=== PATIENT | female | born 1980 | race Caucasian/White ===

== ENCOUNTER 2020-05-16 15:59 | Emergency (ER) | payer BC, OTHER ==
[~2020-05-16] VITALS: Ht 162.5 cm; Wt 68.5 kg
[~2020-05-16 15:59] MED LIST: DULO30CA3 PO; GABA800T10 PO; LEVO75TA6 PO; NORT25CA PO; SUCR1ORA5 PO; TIZA4TAB4 PO
--- NOTE | 2020-05-16 16:38 | ED Headache ---
General Chief Complaint: Head/Cervical Problems Stated Complaint: TROUBLE STANDING UP,HEADACHE Source: patient History of Present Illness Date Seen by Provider: May 16, 2020 Time Seen by Provider: 16:30 Initial Comments Patient presents with headache and neck pain onset this morning. Yesterday she had a myelogram for her chronic back pain, done in [place] and [facility] [place]. Some photosensitivity. No change of her back pain and no neurologic deficit. Allergies and Home Medications Allergies Coded Allergies: latex (Unverified Allergy, Intermediate, HIVES, 06/21/14) Home Medications Duloxetine HCl 30 Mg Capsule.dr, 30 MG PO BID, (Reported) Gabapentin 800 Mg Tablet, 800 MG PO TID, (Reported) Levothyroxine Sodium 75 Mcg Tablet, 75 MCG PO DAILY, (Reported) Nortriptyline HCl 25 Mg Capsule, 25 MG PO HS, (Reported) Sucralfate 1 Gm/10 Ml Oral.susp, 1 GM PO QID, (Reported) Tizanidine HCl 4 Mg Tablet, 4 MG PO HS, (Reported) Patient Home Medication List Home Medication List Reviewed: Yes Review of Systems Review of Systems Constitutional: no symptoms reported Gastrointestinal: No abdominal pain, No nausea, No vomiting Musculoskeletal: No back pain; neck pain Psychiatric/Neurological: See HPI, Headache; Denies Numbness, Denies Paresthesia, Denies Seizure, Denies Tingling, Denies Tremors, Denies Weakness Past Mzipxhd-Jrajpx-Kbpnfw Hx Past Med/Social Hx: Reviewed Nursing Past Med/Soc Hx Patient Social History Type Used: Cigarettes Former Smoker, Quit: Jul 01, 1996 Recent Foreign Travel: No Contact w/Someone Who Travel: No Past Medical History Reproductive Disorders: No Female Reproductive Disorders: Denies Sexually Transmitted Disease: No HIV/AIDS: No UTI-Chronic Gastroesophageal Reflux, Hiatal Hernia Degenerate Disk Disease, Arthritis, Back Injury, Chronic Back Pain Loss of Vision: Denies Hearing Impairment: Denies Adverse Reaction/Blood Tranf: No (N/A) Physical Exam Vital Signs Vital Signs - First Documented 05/16/20 16:13 Temp 35.7 Pulse 77 Resp 20 B/P (MAP) 113/77 (89) Pulse Ox 97 O2 Delivery Room Air Capillary Refill : Height, Weight, BMI Height: 5'4.00" Weight: 226lbs. 1.0oz. 102.226662mm; 38.8 BMI Method: General Appearance: WD/WN, no apparent distress HEENT: PERRL/EOMI, normal ENT inspection Neck: full range of motion, supple, tender lateral, tender midline Crainal Nerves: normal hearing, normal speech, PERRL Comments neck pain with full flexion. Progress/Results/Core Measures Results/Orders Vital Signs/I&O 05/16/20 05/16/20 16:13 17:25 Temp 35.7 35.7 Pulse 77 75 Resp 20 20 B/P (MAP) 113/77 (89) 107/73 (84) Pulse Ox 97 97 O2 Delivery Room Air Progress Progress Note : Progress Note Discussed pt Presentation, clinical findings of "spinal RAIN", HPI and PMHX with Dr Hector Barkley (ER @ [place]) Pt offered tx for her RAIN in this ER, but she declined as she wants to see Anesthesia (for a blood patch), very adamant that she wants tx today so she can get back to work tomorrow. Pt's daughter will drive her to [place]. Departure Impression Primary Impression: Spinal puncture headache Disposition: XF SHT-TRM HOSP Condition: Stable Transfer Transfer Reason: Exceeds level of care Time Spoke to Accepting Phy: 16:30 Transfer Facility: Discussed with Dr. Barkley, transferred by POV to [facility] ER to see anesthesia for potential blood patch for her spinal headache Method of Transfer: Private Vehicle Departure-Patient Inst. Referrals: SIDNEY MACDONALD MD (PCP/Family) Primary Care Physician ALEXYS SNELL DO May 16, 2020 16:38
[2020-05-16] MEDS ORDERED: NS IV 1000 ML 1,000 ML IV SCH (18:30)
[2020-05-16] MEDS ORDERED: fentaNYL INJECTION 100 MCG/2 ML AMP IVP ONE (18:30)
[2020-05-16] MEDS ORDERED: PROCHLORPERAZINE 10 MG/2ML INJ (COMPAZINE) IV ONE (18:30)
[2020-05-16] MEDS ORDERED: diphenhydrAMINE 50 MG/ML INJ (BENADRYL) IVP ONE (18:30)
[2020-05-16 18:56] LABS: BASOPHILS % (AUTO) 0 % (0-10); EOSINOPHILS # (AUTO) 0.1 10^3/uL (0.0-0.3); EOSINOPHILS % (AUTO) 1 % (0-10); HEMATOCRIT 39 % (35-52); HEMOGLOBIN 13.7 G/DL (11.5-16.0); LYMPHOCYTES # (AUTO) 3.2 X 10^3 (1.0-4.0); LYMPHOCYTES % (AUTO) 35 % (12-44); MEAN CORPUSCULAR HEMOGLOBIN 31 PG (25-34); MEAN CORPUSCULAR HGB CONC 35 G/DL (32-36); MEAN CORPUSCULAR VOLUME 88 FL (80-99); MEAN PLATELET VOLUME 9.7 FL (7.4-10.4); MONOCYTES # (AUTO) 0.6 X 10^3 (0.0-1.0); MONOCYTES % (AUTO) 6 % (0-12); NEUTROPHILS # (AUTO) 5.2 X 10^3 (1.8-7.8); NEUTROPHILS % (AUTO) 57 % (42-75); PLATELET COUNT 294 10^3/uL (130-400); RED CELL DISTRIBUTION WIDTH 11.8 % (10.0-14.5); WHITE BLOOD COUNT 9.1 10^3/uL (4.3-11.0)
[2020-05-16] MEDS ORDERED: DULO60CA59 PO (19:25)
[2020-05-16] MEDS ORDERED: LIDOCAINE 1% INJ 20 ML 20 ML VIAL ONE (19:55)
[2020-05-16] MEDS ORDERED: LIDOCAINE 1% INJ 20 ML 20 ML VIAL INJ ONE (20:15)
--- NOTE | 2020-05-16 20:35 | Anesthesia-Procedure Note ---
Procedures/Interventions Procedure Start/Stop/Diagnosis Date of Procedure: May 16, 2020 Start Time: 19:30 Referring Physician: Juan Preprocedural Diagnosis: Post dural puncture H/A from myelogram Brief History Pt had a myelogram puncture in [place] yesterday and has severe positional H/A today. Pt was seen in ER at [place] and transferred here insisting on blood patch. Stop Time: 20:15 Postprocedural Diagnosis: Port dural puncture H/A from myelogram Blood Patch Blood Patch Consent obtained after thorough HX and explanation of procedure. Pt. understood risks of procedure and I advised her initially it may be a difficult placement due to back surgery history. Pt remained in seated position leaning on tray table with nurse at side. Sterile technique maintained betadine prep x3 to back. 3cc lidocaine 1% to skin at L4-5. #18g Tuohy needle SANDRO air technique attempted without success at that interspace. I went down to the level of the myelogram site and had SANDRO at aprox 5.5cm. 2cc of sterile NS from kit injected easily. No heme of CSF encountered. RN obtained 20cc of pt's blood under sterile technique from the R AC X1 attempt. Blood was slowly injected into epidural space in 5cc increments without complication. Pt voiced no complaints of pain or discomfort during injection of autologous blood. Needle was withdrawn and site cleaned and covered with a sterile band aid. Advised pt. to encourage fluids and caffeine and to give it up to 24 hrs but should see improvement within a couple. Advised to follow back up in ER if problems persists. CIRA ARNDT CRNA May 16, 2020 20:35
[2020-05-16 21:25] VITALS: BP 115/83
--- OUTSIDE RECORDS SUMMARY | 2020-05-16 21:35 | XMS REPORT | Continuity of Care Document ---
Author Organization Unknown Address Unknown Phone Unavailable Allergies Active Description Code Type Severity Reaction Onset Reported/Identified Relationship to Patient Clinical Status Yes latex [id number] Drug Allergy Moderate HIVES 06/21/2014 Medications There is no data. Problems Date Dx Coded Attending Type Code Diagnosis Diagnosed By 07/13/2016 DIMAS QUINTERO MD, Ot G89. 4 CHRONIC PAIN SYNDROME 07/13/2016 DIMAS QUINTERO MD, Ot M51. 36 OTHER INTERVERTEBRAL DISC DEGENERATION, 07/13/2016 DIMAS QUINTERO MD, Ot M54. 5 LOW BACK PAIN 07/13/2016 DIMAS QUINTERO MD Ot Z01.818 ENCOUNTER FOR OTHER PREPROCEDURAL EXAMIN 07/13/2016 DIMAS QUINTERO MD Ot Z11. 2 ENCOUNTER FOR SCREENING FOR OTHER BACTER 07/13/2016 DIMAS QUINTERO MD, Ot G89. 4 CHRONIC PAIN SYNDROME 07/13/2016 DIMAS QUINTERO MD Ot M51. 36 OTHER INTERVERTEBRAL DISC DEGENERATION, 07/13/2016 DIMAS QUINTERO MD, Ot M54. 5 LOW BACK PAIN 07/13/2016 DIMAS QUINTERO MD Ot Z01.818 ENCOUNTER FOR OTHER PREPROCEDURAL EXAMIN 07/13/2016 DIMAS QUINTERO MD Ot Z11. 2 ENCOUNTER FOR SCREENING FOR OTHER BACTER 07/16/2016 DIMAS QUINTERO MD, Ot G89. 4 CHRONIC PAIN SYNDROME 07/16/2016 DIMAS QUINTERO MD Ot M54. 5 LOW BACK PAIN 07/16/2016 DIMAS QUINTERO MD Ot M96. 1 POSTLAMINECTOMY SYNDROME, NOT ELSEWHERE 07/19/2016 DIMAS QUINTERO MD, Ot G89. 4 CHRONIC PAIN SYNDROME 07/19/2016 DIMAS QUINTERO MD, Ot M54. 5 LOW BACK PAIN 07/19/2016 DIMAS QUINTERO MD, Ot M96. 1 POSTLAMINECTOMY SYNDROME, NOT ELSEWHERE Procedures There is no data. Results Test Result Range Methicillin resistant Staphylococcus aur eus (MRSA) screening culture - 07/12/16 11:50 Methicillin resistant Staphylococcus aureus (MRSA) scr eening culture NEG NRG Urine beta human chorionic gonadotropin (hCG) measurement - 07/16/16 07:55 Urine beta human chorionic gonadotropin (hCG) measurem ent NEGATIVE NEGATIVE Complete blood count (CBC) with automate d white blood cell (WBC) differential - 05/16/20 18:50 Blood leukocytes automated count (number/volume) 9.1 10*3/uL 4.3-11.0 Blood erythrocytes automated count (number/volume) 4.47 10*6/uL 4.35-5.85 Venous blood hemoglobin measurement (mass/volume) 13.7 g/dL 11.5-16.0 Blood hematocrit (volume fraction) 39 % 35-52 Automated erythrocyte mean corpuscular volume 88 [ foz_us] 80-99 Automated erythrocyte mean corpuscular h emoglobin (mass per erythrocyte) 31 pg 25-34 Automated erythrocyte mean corpuscular h emoglobin concentration measurement (mass/volume) 35 g/dL 32-36 Automated erythrocyte distribution width ratio 11. 8 % 10.0- 14.5 Automated blood platelet count (count/volume) 294 10*3/uL 130-400 Automated blood platelet mean volume measurement 9.7 [foz_us] 7.4-10.4 Automated blood neutrophils/100 leukocytes 57 % 42-75 Automated blood lymphocytes/100 leukocytes 35 % 12-44 Blood monocytes/100 leukocytes 6 % 0-12 Automated blood eosinophils/100 leukocytes 1 % 0-10 Automated blood basophils/100 leukocytes 0 % 0-10 Blood neutrophils automated count (number/volume) 5.2 10*3 1.8-7.8 Blood lymphocytes automated count (number/volume) 3.2 10*3 1.0-4.0 Blood monocytes automated count (number/volume) 0. 6 10*3 0.0-1.0 Automated eosinophil count 0.1 10*3/uL 0 .0-0.3 Automated blood basophil count (count/volume) 0.0 10*3/uL 0.0-0.1 Encounters ACCT No. Visit Date/Time Discharge Status Pt. Type Provider Facility Loc./Unit Complaint [id number] 04/10/2018 09:00:00 04/10/2018 23:59: 59 CLS Outpatient [facility] [id number] 07/16/2016 07:55:00 11:45:00 DIS Outpatient DIMAS QUINTERO MD Via [facility] CPS [id number] 07/12/2016 11:20:00 12:23:00 DIS Outpatient DIMAS QUINTERO MD Via [facility] PREOP CPS [id number] 08/02/2014 07:54:00 08:28:00 DIS Outpatient [id number] 06/21/2014 09:54:00 23:59:59 CLS Outpatient [id number] 05/31/2014 09:26:00 10:33:00 DIS Outpatient [id number] 05/16/2020 16:01:[address] Emergency CHANDNI MONZON APRN [facility] ER TROUBLE STANDING UP,HEADACHE
--- OUTSIDE RECORDS SUMMARY | 2020-05-16 21:35 | XMS REPORT ---
Author Author [employer]amped. truck [employer] [facility] [facility] [employer] [facility] [employer] Address [address] [address] Care Team Providers Care Wig Stylist Name Role Phone SIDNEY MACDONALD Unavailable LYDIABOB Unavailable ALEXYS SNELL DO Unavailable Unavailable Unavailable Unavailable Unavailable Unavailable Allergies The data below is from unstructured sourcesNo known allergies. No Information No Information Encounters Encounter Date Encounter Type Encounter Diagnosis Care Provider Facility Start: Emergency department ALEXYS SNELL [facility] 05-16-2020 patient visit [facility] Start: Patient encounter OUTSIDE PCP [facility] 04-10-2018 procedure Center [facility] ([id number]) Medical Equipment No Information Goals No Information Immunizations The data below is from unstructured sourcesNo immunization records.No immunization records.No immunization records.No immunization records.No immunization records.No immunization records.No immunization records. No Known Immunizations No Known Immunizations Interventions No Information Medications The data below is from unstructured sourcesNo known medications.No known medications.No known medications.No known medications.No known medications. Unknown Medications No Known Medications Unknown Medications Payers No Information Plan of Treatment The data below is from unstructured sources Discharge Date 07/12/16 12:23pm Prescriptions See Medication Section Activity Details Follow Up 2 Weeks Reason:review eval uation results Activity Details Follow Up 2 Weeks Reason:review eval uation results Problems The data below is from unstructured sourcesNo problem information available.No known problems or medical conditions.No known problems or medical conditions.No known problems or medical conditions.No known problems or medical conditions.No known problems or medical conditions.No known problems or medical conditions. Procedures The data below is from unstructured sourcesNo known history of procedures.No known history of procedures.No known history of procedures.No known history of procedures.No known history of procedures.No kn own history of procedures.No known history of procedures. Results Test Name Value Interpreta Reference Facilit Date tion Range y Time laboratory on 2020-05-16 Basophils (Bld) 0.0 10*3/uL Negative 0.0-0.1 PENDING 05-16 [#/Vol] 10*3/uL [facility] 14:50-0 ([id number]) 400 Basophils/100 WBC 0 % Negative 0-10 % PENDING 05-16 (Bld) [facility] 14:50-0 ([id number]) 400 Eosinophils (Bld) 0.1 10*3/uL Negative 0.0-0.3 PENDING [#/Vol] 10*3/uL [facility] 14:50-0 (21051) 400 Eosinophils/100 WBC 1 % Negative 0-10 % P[facility] (Bld) [facility] 14:50-0 ([id number]) 400 Erythrocyte 11.8 % Negative 10.0-14.5 PENDING distribution width % [facility] (RBC) [Ratio] [facility] 14:50-0 ([id number]) 400 Hematocrit (Bld) 39 % Negative 35-52 % PENDING [Volume fraction] [facility] 020 [facility] 14:50-0 ([id number]) 400 Hemoglobin (Bld) 13.7 g/dL Negative 11.5-16.0 PENDING [Mass/Vol] g/dL [facility] 14:50-0 ([id number]) 400 Lymphocytes (Bld) 3.2 10*3/uL Negative 1.0-4.0 PENDING [#/Vol] 10*3 [facility] 14:50-0 (05050) 400 Lymphocytes/100 WBC 35 % Negative 12-44 % PENDING (Bld) [facility] 14:50-0 ([id number]) 400 MCH (RBC) [Entitic 31 pg Negative 25-34 pg PENDING 04-30 7-2 mass] [facility] 020 [facility] 14:50-0 ([id number]) 400 MCHC (RBC) 35 g/dL Negative 32-36 g/dL PENDING [Mass/Vol] [facility] 14:50-0 ([id number]) 400 MCV (RBC) [Entitic 88 Negative 80-99 PENDING 04-30 7-2 vol] [foz_us] [place] 020 [facility] 14:50-0 (56508) 400 Monocytes (Bld) 0.6 10*3/uL Negative 0.0-1.0 PENDING 05-16 [#/Vol] 10*3 [facility] 14:50-0 (79731) 400 Monocytes/100 WBC 6 % Negative 0-12 % PENDING 05-16 (Bld) [facility] 020 [facility] 14:50-0 ([id number]) 400 Neutrophils (Bld) 5.2 10*3/uL Negative 1.8-7.8 PENDING [#/Vol] 10*[address] 14:50-0 (28494) 400 Neutrophils/100 WBC 57 % Negative 42-75 % PENDING (Bld) [facility] 020 [facility] 14:50-0 ([id number]) 400 Platelet mean volume 9.7 Negative 7.4-10.4 PENDING (Bld) [Entitic vol] [foz_us] [facility] 14:50-0 ([id number]) 400 Platelets (Bld) 294 10*3/uL Negative 130-400 PENDING 05-16 [#/Vol] 10*3/uL [facility] 020 [facility] 14:50-0 ([id number]) 400 RBC (Bld) [#/Vol] 4.47 10*6/uL Negative 4.35-5.85 PENDING 10*6/uL [facility] 14:50-0 (07140) 400 WBC (Bld) [#/Vol] 9.1 10*3/uL Negative 4.3-11.0 PENDING 10*3/uL [facility] 14:50-0 ([id number]) 400 Social History No Information Vital Signs The data below is from unstructured sources Vital Response Date/Time Pulse Rate (adult) 87 bpm (60 - 90) 07/12/2016 11:27am Respiratory Rate 16 bpm (12 - 24) 07/12/2016 11:27am O2 Sat by Pulse Oximetry 99 % (88 - 100) 07/12/2016 11:27am Blood Pressure 128/82 mm Hg 07/12/2016 11:27am Blood Pressure Mean 97 mm Hg 07/12/2016 11:27am Pain Numeric Pain Scale 3 11:27am Height (Feet) 5 feet 09/2016 11:27am Height (Inches) 4.00 inches 07/12/2016 11:27am Height (Calculated Centimeters) 162. 647167 cm 07/12/2016 11:27am Weight (Pounds) 226 pounds 07/12/2016 11:27am Weight (Ounces) 1.0 oz 0 07/12/2016 11:27am Weight (Calculated Grams) 886630.226 gm 07/12/2016 11:27am Weight (Calculated Kilograms) 102.54 0226 kilograms 07/12/2016 11:27am Calculated BMI 37.60 09/2016 11:27am Vital Response Date/Time Temperature (Fahrenheit) 97.2 degree s F (97.6 - 99.5) Temperature (Calculated Celsius) 36. 06991 degrees C (36.4 - 37.5) Temperature Source Tympanic Pulse Rate (adult) 68 bpm (60 - 90) Respiratory Rate 18 bpm (12 - 24) O2 Sat by Pulse Oximetry 100 % (88 - 100) Blood Pressure 129/83 mm Hg Pain Pain Intensity 6 Height (Feet) 5 feet Height (Inches) 4.00 inches Height (Calculated Centimeters) 162. 643709 cm Weight (Pounds) 190 pounds Weight (Calculated Grams) 23673.551 gm Weight (Calculated Kilograms) 86.182 551 kilograms Calculated BMI 32.61 Vital Response Date/Time Temperature (Fahrenheit) 97.7 degree s F (97.6 - 99.5) Temperature (Calculated Celsius) 36. 21230 degrees C (36.4 - 37.5) Temperature Source Tympanic Pulse Rate (adult) 76 bpm (60 - 90) Respiratory Rate 14 bpm (12 - 24) O2 Sat by Pulse Oximetry 97 % (88 - 100) Blood Pressure 118/88 mm Hg Height (Feet) 5 feet Height (Inches) 4.00 inches Height (Calculated Centimeters) 162. 618064 cm Weight (Pounds) 204 pounds Weight (Calculated Grams) 65961.844 gm Weight (Calculated Kilograms) 92.532 844 kilograms Calculated BMI 35.01 Vital Response Date/Time Temperature (Fahrenheit) 97.6 degree s F (97.6 - 99.5) Temperature (Calculated Celsius) 36. 79351 degrees C (36.4 - 37.5) Temperature Source Tympanic Pulse Rate (adult) 80 bpm (60 - 90) Respiratory Rate 18 bpm (12 - 24) O2 Sat by Pulse Oximetry 98 % (88 - 100) Blood Pressure 124/86 mm Hg Pain Pain Intensity 0 Height (Feet) 5 feet Height (Inches) 4.00 inches Height (Calculated Centimeters) 162. 753170 cm Weight (Pounds) 202 pounds Weight (Calculated Grams) 76383.660 gm Weight (Calculated Kilograms) 91.625 660 kilograms Calculated BMI 34.67 Functional Status The data below is from unstructured sourcesNo functional status results.No functional status results.No functional status results.No functional status results.No functional status results.No functional status results.No functional status results. Mental Status No Information Advance Directives Directive Response Recor ded Date/Time Advance Directives No 11:27am Health Care Power of Production Administrator No 07/12/16 11:27am Organ Donor Yes 07/12/16 11:27am Resuscitation Status Full Code 07/12/16 11:27am Directive Response Recor ded Date/Time Advance Directives No 8:04am Health Care Power of Production Administrator No 08/02/14 8:04am Organ Donor Yes 08/02/14 8:04am Resuscitation Status Full Code 08/02/14 8:04am Directive Response Recor ded Date/Time Advance Directives No 9:46am Health Care Power of Production Administrator No 05/31/14 9:46am Organ Donor Yes 05/31/14 9:46am Resuscitation Status Full Code 05/31/14 9:46am Directive Response Recor ded Date/Time Advance Directives No 10:37am Health Care Power of Production Administrator No 06/21/14 10:37am Organ Donor Yes 06/21/14 10:37am Resuscitation Status Full Code 06/21/14 10:37am Discharge Instructions No hospital discharge instructions.No hospital discharge instructions.No hospital discharge instructions.No hospital discharge instructions. Additional Source Comments This clinical document has been generated using [employer] software that has been certified by the Office of the National Coordinator for Health Information Technology (ONC 15.99.04.3023.Diam.31.00.0.582784) and the National Committee for Inspector Health Care Facilities (NCQA, as an eMeasure certified technology). FOR RECORDS PERTAINING TO PATIENTS WHO ARE OR HAVE BEEN ENROLLED IN A CHEMICAL D EPENDENCY/SUBSTANCE ABUSE PROGRAM, SOME INFORMATION MAY BE OMITTED. This clinica l summary was aggregated from multiple sources. Caution should be exercised in using it in the provision of clinical care. This summary normalizes information from multiple sources, and as a consequence, information in this document may ma terially change the coding, format and clinical context of patient data. In lori tion, data may be omitted in some cases. CLINICAL DECISIONS SHOULD BE BASED ON T HE PRIMARY CLINICAL RECORDS. [employer] provides no warranty or guara ntee of the accuracy or completeness of information in this document.The followi ng information is based on time limited clinical information
--- OUTSIDE RECORDS SUMMARY | 2020-05-16 21:35 | XMS REPORT | Clinical Summary ---
Author Author [facility] Organization [facility] Address Unknown Phone Unavailable Care Team Providers Care Orthopedic Shoes Salesperson Name Role Phone Andrew Burton MD PCP Source Comments Some departments are not documenting in the electronic medical record. If you d o not see the information that you expected, contact Release of Information in [facility] [employer] Information Management department at [phone] for further assistan ce in locating additional records.[facility] Allergies No Known Allergies Medications End Date Status Medication Sig Dispensed Refills Start Date Active levothyroxine (SYNTHROID) Take 50 mcg 0 50 mcg tablet by mouth daily. Active NAPROXEN SODIUM (ALEVE Take by 0 PO) mouth as Needed. Active ranitidine(+) (ZANTAC) Take 150 mg 0 150 mg tablet by mouth twice daily. Active Problems Not on file Social History Date Tobacco Use Types Packs/Day Years Used Never Assessed Sex Assigned at Date Recorded Not on file Industry Job Start Date Occupation Not on file Not on file Not on file Travel End Travel History Travel Start No recent travel history available. Last Filed Vital Signs Reading Time Taken Comments Vital Sign 115/77 12/20/2013 9:11 AM PROJECT ARCHIVIST Blood Pressure 69 12/20/2013 9:11 AM PROJECT ARCHIVIST Pulse 36.8 C (98.2 F) 12/20/2013 9:11 AM PROJECT ARCHIVIST Temperature - - Respiratory Rate 98% 12/20/2013 9:11 AM PROJECT ARCHIVIST Oxygen Saturation - - Inhaled Oxygen Concentration 91.1 kg (200 lb 12.8 oz) 12/20/2013 9:11 AM PROJECT ARCHIVIST Weight 162.6 cm (5' 4") 12/20/2013 9:11 AM PROJECT ARCHIVIST Height 34.47 12/20/2013 9:11 AM PROJECT ARCHIVIST Body Mass Index Plan of Treatment Health Maintenance Due Date Last Done Comments HIV SCREENING 1993 DTAP/TDAP VACCINES ( - 1996 Tdap) HEPATITIS C SCREENING 1996 PHYSICAL (COMPREHENSIVE) 1996 EXAM CERVICAL CANCER SCREENING 1999 BREAST CANCER SCREENING 2018 INFLUENZA VACCINE 07/31/2020 Results Not on filefrom Last 3 Months Insurance Type Payer Benefit Subscriber ID Effective Phone Address Plan / Dates Group Indemnity [facility] xxxxxxxxx 2013-P SELECT/JONI resent ECT PLUS [id number] [facility] (Home) [place], [place] [address] x0 (Work) Advance Directives Patient Clinical Safety Specialist Explanation Type Date Recorded Advance 12/11/2013 12:13 PM Directive/DPOA
--- OUTSIDE RECORDS SUMMARY | 2020-05-16 21:35 | XMS REPORT ---
Author Author Rosa FREEMAN Organization [facility] Address [address] [place] [address] Care Team Providers Care Sales Assoc Name Role Phone BOB FREEMAN Unavailable PROBLEMS Type Condition ICD9-CM Code ZKU93-MS Code Onset Dates Condition S tatus SNOMED Code Problem Eating disorder, unspecified F50.9 A ctive [id number] Problem Depressive disorder, not elsewhere classified F32. 9 Active [id number] ALLERGIES No Information ENCOUNTERS Encounter Location Date Diagnosis [facility] [address] [facility] [id number] [place] [address] Mar, Depressive disorder, not els ewhere classified F32.9 and Eating disorder, unspecified F50.9 IMMUNIZATIONS No Known Immunizations SOCIAL HISTORY Never Assessed REASON FOR VISIT Psychological evaluaiion for bariatric surgery. PLAN OF CARE Activity Details Follow Up 2 Weeks Reason:review evalua tion results VITAL SIGNS MEDICATIONS Unknown Medications RESULTS No Results PROCEDURES Procedure Date Ordered Result Body Site Psych diagnostic evaluation, new patient April 10, 2018 PSYCHO TESTING ADMIN BY COMP April 10, 2018 INSTRUCTIONS MEDICATIONS ADMINISTERED No Known Medications
--- NOTE | 2020-05-17 09:59 | Progress Note ---
Standard Progress Note Progress Notes/Assess & Plan Date Seen by a Provider: May 17, 2020 Time Seen by a Provider: 09:50 Progress/Assessment & Plan Contacted Ms. Murry by telephone this morning to f/u on her pain post blood patch. Pt reported that she still has somewhat of a headache and that she did not feel like the blood patch "helped much". Pt advised that she was planning on going to work tonight. I advised her to rest and encourage fluids/caffeine and to stay home tonight from work if that was possible in order for that dural puncture to heal. I gave her the option to repeat blood patch but would like to wait 24-48 hrs to do that. Will f/u again tomorrow. Advised pt to return to ER if need be. Final Diagnosis Post dural puncture headache CIRA ARNDT CRNA May 17, 2020 09:59
== END 2020-05-16 21:24 | disposition short-term general hospital (02) ==
LOC: EDUNIT# 15:59 → ER FS 16:01 → ER 21:24
DX: G97.1 Other reaction to spinal and lumbar puncture (principal); R51 Headache; K21.9 Gastro-esophageal reflux disease without esophagitis; Z91.040 Latex allergy status; Z87.891 Personal history of nicotine dependence
CPT/HCPCS: 36415; 85025

== ENCOUNTER 2020-06-02 09:10 | Emergency (ER) | payer OTHER, BC ==
[~2020-06-02] VITALS: Ht 162.5 cm; Wt 71.9 kg
[~2020-06-02 09:10] MED LIST changes: +DULO60CA59 PO
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
[2020-06-02] MEDS ORDERED: HYDROcodone/APAP 5 MG/325 MG (LORTAB) TAB PO ONE (09:45)
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
[2020-06-02 12:10] VITALS: BP 119/75
== END 2020-06-02 12:10 | disposition home or self-care (01) ==
LOC: EDUNIT# 09:10 → ER FS 09:11
DX: S16.1XXA Strain of muscle, fascia and tendon at neck level, initial encounter (principal); S39.012A Strain of muscle, fascia and tendon of lower back, initial encounter; R51 Headache; M25.551 Pain in right hip; M54.9 Dorsalgia, unspecified; Z87.891 Personal history of nicotine dependence; K21.9 Gastro-esophageal reflux disease without esophagitis; K44.9 Diaphragmatic hernia without obstruction or gangrene; M19.91 Primary osteoarthritis, unspecified site; V43.52XA Car driver injured in collision with other type car in traffic accident, initial encounter
CPT/HCPCS: 70450; 72125; 72128; 72131; 73502

== ENCOUNTER 2023-06-23 10:49 | Emergency (ER) | payer BC, OTHER ==
[~2023-06-23] VITALS: Ht 160 cm; Wt 77.1 kg
[~2023-06-23 10:49] MED LIST changes: +TIZA-186 PO; -TIZA4TAB4 PO
[2023-06-23 11:02] VITALS: BP 120/64
[2023-06-23] MEDS ORDERED: NS IV 1000 ML 1,000 ML IV STA ×2 (11:04→12:01)
[2023-06-23] MEDS ORDERED: PANTOPRAZOLE INJECTION 40 MG VIAL IV STA (11:04)
[2023-06-23] MEDS ORDERED: ONDANSETRON INJECTION 4 MG/2 ML (SDV) IVP STA (11:04)
[2023-06-23] MEDS ORDERED: KETOROLAC INJ 15 MG/ML VIAL IVP STA (11:04)
--- NOTE | 2023-06-23 11:25 | ED General ---
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 She felt like she could not get cooled down at home. She had abdominal pain with cramping and diarrhea overnight. She had history of gastric bypass in 2018 out of [facility]. She states that she still follows with them. She also sees Dr. Sidney Macdonald in [place] for her primary care. She takes multiple medications including pain medicine and n europathy medicines for chronic back pain. She states she has not been able to take her medicine since yesterday. She feels like she has not been able to urinate and is only having diarrhea when she goes to the bathroom. She had felt dizzy and lightheaded today as well. When she went to work today they had her come to the emergency department as a work comp case. Timing/Duration: 24 Hours Severity: Severe Modifying Factors: worse with Movement (activity and being in the heat makes her feel worse) Associated Systoms: No Chest Pain, No Cough, No Diaphoresis, No Fever/Chills, No Headaches; Loss of Appetite, Malaise, Nausea/Vomiting; No Rash, No Seizure, No Shortness of Air, No Syncope; Weakness Allergies and Home Medications Allergies Coded Allergies: latex (Unverified Allergy, Intermediate, HIVES, 06/21/14) Patient Home Medication List Home Medication List Reviewed: Yes Dicyclomine HCl (Dicyclomine HCl) 10 Mg Capsule, 10 MG PO QID PRN for ABDOMINAL PAIN Prescribed by: FRANK GREER on 06/23/23 1242 Duloxetine HCl (Duloxetine HCl) 60 Mg Capsule., 60 MG PO BID, (Reported) Entered as Reported by: GABRIEL JERRY on 05/16/20 1925 Levothyroxine Sodium (Levothyroxine Sodium) 75 Mcg Tablet, 75 MCG PO DAILY, (Reported) Entered as Reported by: MICHAEL NEWSOME on 07/12/16 1134 Nortriptyline HCl (Nortriptyline HCl) 25 Mg Capsule, 25 MG PO HS, (Reported) Entered as Reported by: MICHAEL NEWSOME on 07/12/16 1134 Ondansetron (Ondansetron Odt) 4 Mg Tab.rapdis, 4 MG PO Q6H PRN for NAUSEA/VOMITING Prescribed by: FRANK GREER on 06/23/23 1242 Tizanidine HCl (Tizanidine HCl) 4 Mg Tablet, 4 MG PO HS, (Reported) Entered as Reported by: MICHAEL NEWSOME on 07/12/16 1134 Review of Systems Review of Systems Constitutional: see HPI EENTM: no symptoms reported Respiratory: No cough, No short of breath Cardiovascular: No chest pain Gastrointestinal: see HPI, abdominal pain (diffuse cramping), diarrhea, nausea, vomiting Genitourinary: decreased output Musculoskeletal: other (generalized body aches) Skin: No rash Psychiatric/Neurological: See HPI, Anxiety Past Jozqblc-Tvilsf-Gkghvg Hx Seasonal Allergies Seasonal Allergies: No Past Medical History Surgery/Hospitalization HX: Gastric Bypass 2018, Chronic back pain, Neuropathy Surgeries: Yes (KNEE SCOPE, UTERINE ABLATION, BACK SURGERY x 2 ) Respiratory: No Cardiac: No Neurological: No Reproductive Disorders: No Female Reproductive Disorders: Denies Sexually Transmitted Disease: No HIV/AIDS: No Genitourinary: No UTI-Chronic Gastrointestinal: Yes (INFLAMMED ESOPHAGUS/STOMACH) Gastroesophageal Reflux, Hiatal Hernia Musculoskeletal: Yes Degenerate Disk Disease, Arthritis, Back Injury, Chronic Back Pain Endocrine: Yes HEENT: No Loss of Vision: Denies Hearing Impairment: Denies Cancer: No Psychosocial: No (TAKES CYMBALTA FROM INFLAMATION) Integumentary: No Blood Disorders: No Adverse Reaction/Blood Tranf: No (N/A) Physical Exam Vital Signs Vital Signs - First Documented 06/23/23 11:02 Temp 36.0 Pulse 86 Resp 18 B/P (MAP) 120/64 (82) Pulse Ox 100 O2 Delivery Room Air Capillary Refill : Height, Weight, BMI Height: 5'4.00" Weight: 226lbs. 1.0oz. [id number]; 27.00 BMI Method: General Appearance: Chronically ill, Moderate Distress HEENT: PERRL/EOMI; No Moist Mucous Membranes (slightly dry mucous membranes) Respiratory: Chest Non Tender, Lungs Clear, Normal Breath Sounds, No Accessory Muscle Use, No Respiratory Distress Cardiovascular: Regular Rate, Rhythm, Normal Peripheral Pulses Gastrointestinal: Normal Bowel Sounds, No Pulsatile Mass, Soft; No Distended; Guarding (voluntary ); No Rebound; Tenderness (diffuse tenderness to palpation) Rectal: Deferred Extremity: Normal Capillary Refill, Normal Inspection, No Pedal Edema Neurologic/Psychiatric: Alert, Oriented x3, customer service sales consultant II-XII Norm as Tested Skin: Warm/Dry Focused Exam Lactate Level 06/23/23 11:07: Lactic Acid Level 1.81 Lactic Acid Level Laboratory Tests Test 06/23/23 11:07 Lactic Acid Level 1.81 MMOL/L (0.50-2.00) Progress/Results/Core Measures Suspected Sepsis SIRS Temperature: Pulse: Respiratory Rate: Laboratory Tests 06/23/23 11:07: White Blood Count 9.8 Blood Pressure / Mean: 06/23/23 11:07: Lactic Acid Level 1.81 Laboratory Tests 06/23/23 11:07: Creatinine 0.60, Platelet Count 345, Total Bilirubin 0.6 Results/Orders Lab Results Laboratory Tests Test 06/23/23 11:07 06/23/23 11:17 Range/Units White Blood Count 9.8 4.3-11.0 10^3/uL Red Blood Count 5.01 3.80-5.11 10^6/uL Hemoglobin 14.8 11.5-16.0 g/dL Hematocrit 43 35-52 % Mean Corpuscular Volume 86 80-99 fL Mean Corpuscular Hemoglobin 30 25-34 pg Mean Corpuscular Hemoglobin Concent 35 32-36 g/dL Red Cell Distribution Width 11.9 10.0-14.5 % Platelet Count 345 130-400 10^3/uL Mean Platelet Volume 9.6 9.0-12.2 fL Immature Granulocyte % (Auto) 0 % Neutrophils (%) (Auto) 77 H 42-75 % Lymphocytes (%) (Auto) 20 12-44 % Monocytes (%) (Auto) 2 0-12 % Eosinophils (%) (Auto) 0 0-10 % Basophils (%) (Auto) 0 0-10 % Neutrophils # (Auto) 7.6 1.8-7.8 X 10^3 Lymphocytes # (Auto) 2.0 1.0-4.0 X 10^3 Monocytes # (Auto) 0.2 0.0-1.0 X 10^3 Eosinophils # (Auto) 0.0 0.0-0.3 10^3/uL Basophils # (Auto) 0.0 0.0-0.1 10^3/uL Sodium Level 137 135-145 MMOL/L Potassium Level 3.9 3.6-5.0 MMOL/L Chloride Level 104 98-107 MMOL/L Carbon Dioxide Level 18 L 21-32 MMOL/L Anion Gap 15 H 5-14 MMOL/L Blood Urea Nitrogen 12 7-18 MG/DL Creatinine 0.60 0.60-1.30 MG/DL Estimat Glomerular Filtration Rate 113 BUN/Creatinine Ratio 20 Glucose Level 125 H 70-105 MG/DL Lactic Acid Level 1.81 0.50-2.00 MMOL/L Calcium Level 9.8 8.5-10.1 MG/DL Corrected Calcium 9.5 8.5-10.1 MG/DL Magnesium Level 2.1 1.6-2.4 MG/DL Total Bilirubin 0.6 0.1-1.0 MG/DL Aspartate Amino Transf (AST/SGOT) 17 5-34 U/L Alanine Aminotransferase (ALT/SGPT) 25 0-55 U/L Alkaline Phosphatase 75 40-136 U/L C-Reactive Protein 0.30 <0.50 MG/DL Total Protein 7.3 6.4-8.2 GM/DL Albumin 4.4 3.2-4.5 GM/DL Urine Color YELLOW Urine Clarity SL CLOUDY Urine pH 6.0 5-9 Urine Specific Mobile 1.025 H 1.016-1.022 Urine Protein TRACE H NEGATIVE Urine Glucose (UA) NEGATIVE NEGATIVE Urine Ketones 3+ H NEGATIVE Urine Nitrite NEGATIVE NEGATIVE Urine Bilirubin 1+ H NEGATIVE Urine Urobilinogen 1.0 < = 1.0 MG/DL Urine Leukocyte Esterase NEGATIVE NEGATIVE Urine RBC (Auto) 1+ H NEGATIVE Urine RBC RARE /HPF Urine WBC NONE /HPF Urine Crystals NONE /LPF Urine Bacteria NEGATIVE /HPF Urine Casts NONE /LPF Urine Mucus SMALL H /LPF Urine Culture Indicated NO My Orders Orders - FRANK GREER MD Cbc With Automated Diff (06/23/23 11:04) Comprehensive Metabolic Panel (06/23/23 11:04) Lactic Acid Analyzer (06/23/23 11:04) Ua Culture If Indicated (06/23/23 11:04) Ed Iv/Invasive Line Start (06/23/23 11:04) Crp Fs (06/23/23 11:04) Stool Culture (06/23/23 11:04) Fecal Wbc (06/23/23 11:04) C Difficile Ag + Toxin A/B. (06/23/23 11:04) Ns Iv 1000 Ml (Ns Iv 1000 Ml) (06/23/23 11:04) Ondansetron Injection (Ondansetron Inj (06/23/23 11:04) Pantoprazole Injection (Protonix Injecti (06/23/23 11:04) Ketorolac Injection (Ketorolac Injection (06/23/23 11:04) Magnesium (06/23/23 11:04) Ct Abdomen/Pelvis W (06/23/23 11:04) Straight Cath For Spec.-Adult (06/23/23 11:04) Fentanyl Injection (Fentanyl Injection (06/23/23 11:47) Iohexol Injection (Omnipaque 350 Mg/Ml 1 (06/23/23 12:00) Ns (Ivpb) 100 Ml (Sodium Chloride 0.9% 1 (06/23/23 12:00) Contrast Received (Contrast Received) (06/23/23 12:00) Ns Iv 1000 Ml (Ns Iv 1000 Ml) (06/23/23 12:01) Medications Given in ED Current Medications Medications Dose Ordered Sig/Gia Route Start Time Stop Time Status Last Admin Dose Admin Iohexol 100 ml ONCE ONCE IV 06/23/23 12:00 06/23/23 12:01 DC 06/23/23 12:05 75 ML Sodium Chloride 100 ml ONCE ONCE IV 06/23/23 12:00 06/23/23 12:01 DC 06/23/23 12:05 100 ML Vital Signs/I&O 06/23/23 06/23/23 06/23/23 06/23/23 11:02 11:39 11:43 12:13 Temp 36.0 Pulse 86 86 83 88 Resp 18 18 16 B/P (MAP) 120/64 (82) 99/53 (68) 111/75 (87) 120/79 (93) Pulse Ox 100 99 98 O2 Delivery Room Air Room Air Room Air 06/23/23 12:41 Pulse 81 Resp 16 B/P (MAP) 101/58 (72) Pulse Ox 100 O2 Delivery Room Air Capillary Refill : Progress Note #1: Progress Note Presents with diagnosis of dehydration, heat exhaustion, electrolyte imbalance, UTI, infectious diarrhea, colitis, diverticulitis, ischemic bowel. Obtain peripheral IV access and send labs for complete blood count, comprehensive metabolic profile, CRP, magnesium, lactic acid. Urinalysis to look for signs of infection and check her hydration level. CT scan of the abdomen and pelvis with IV contrast looking for acute pathology in the belly. If she has diarrhea here to try to collect a specimen for culture. Ordered straight cath for urine specimen since she was having diarrhea whenever she tries to pee. This would help ensure that we got a clean specimen. Administer normal saline 1 L IV fluid bolus for hydration, Zofran 4 mg IV for nausea and vomiting, pantoprazole 40 mg IV for gastritis, Toradol 15 mg IV for abdominal cramping and pain. Progress Note #2: Time: 11:50 Progress Note Patient was requesting additional medicine for pain. She reports that she has not been able to take her chronic pain medicine since yesterday. She has a stable complete blood count with white blood cells with upper limit of normal at 9.8. Hemoglobin was in the normal range at 14.8. She had a negative lactic acid at 1.81. Her urinalysis was concentrated with specific gravity of 1.025, 3+ ketones, 1+ bilirubin and a small amount of mucus. There is no bacteria, leukocyte esterase, nitrites to indicate a UTI. We will add a dose of fentanyl 50 mcg IV for pain while waiting on the rest of her comprehensive metabolic profile and CT scan of the abdomen and pelvis. Progress Note #3: Progress Note Comprehensive metabolic panel no acute electrolyte abnormalities. Her kidney function was okay with the BUN of 12 and creatinine of 0.6. She did have mild elevation of her glucose to 125. Her magnesium was normal at 2.1. CRP was not elevated at 0.3. Her CT scan of the abdomen and pelvis with IV contrast had not showing any acute abnormalities. She was feeling better after medications and treatment here in the ED. She has had no vomiting or dry heaves since arrival. She had 1 small amount of stool when she tried to urinate. Counseled patient on findings and results. She states that she is not due to work again until July 06. Encouraged to avoid heat and try and keep sipping on fluids to stay hydrated. Resume her chronic pain medicines. Prescription for Zofran ODT 4 mg every 6 hours as needed nausea and vomiting x3 days was sent to [facility] in addition to dicyclomine or Bentyl 10 mg p.o. every 6 hours as needed abdominal pain and cramping x5 days. Encouraged to push fluids and hydration. Check back with her primary care provider and/or work comp if having continued concerns. Diagnostic Imaging Diagonstic Imaging: CT Plain Films/CT/US/NM/MRI: abdomen, pelvis Comments NAME: GABI MORRIS [facility] REC#: [id number] PT STATUS: REG ER : 1980 PHYSICIAN: FRANK GREER MD ADMIT DATE: 06/23/23/ER FS Draft Date of Exam:06/23/23 CT ABDOMEN/PELVIS W PROCEDURE: CT abdomen and pelvis with contrast. TECHNIQUE: Multiple contiguous axial images were obtained through the abdomen and pelvis after administration of intravenous contrast. Auto Exposure Controls were utilized during the CT exam to meet ALARA standards for radiation dose reduction. All CT scans use one or more of the following dose optimizing techniques: automated exposure control, MA and/or KvP adjustment based on patient size and exam type or iterative reconstruction. INDICATION: Nausea, vomiting and diarrhea. The lung bases are clear. The liver appears normal. Gallbladder is surgically absent. The portal vein is patent. Common duct is not dilated. The pancreas appears normal. The spleen is not enlarged. There are postsurgical changes near the gastroesophageal junction probably due to gastric bypass. Kidneys and adrenals appear normal. Small bowel is not dilated. There is no evidence of appendicitis. Colon is unremarkable. There are several small fibroids in the uterus. Adnexa are unremarkable. Urinary bladder is normal. There is no intraperitoneal free air or free fluid. IMPRESSION: No acute abnormality is seen in the abdomen or pelvis. Dictated on workstation # [id number] [email or web address] Dict: 06/23/23 1214 Trans: 06/23/23 1219 [facility] [id number] Interpreted by: OMEGA FIGUEROA MD Electronically signed by: Departure Impression Primary Impression: Heat exhaustion, unspecified, initial encounter Additional Impressions: Diarrhea Qualified Codes: R19.7 - Diarrhea, unspecified Abdominal cramping, generalized Dehydration Disposition: 01 HOME, SELF-CARE Condition: Improved Departure-Patient Inst. Decision time for Depature: 12:41 Referrals: SIDNEY MACDONALD MD (PCP) Primary Care Physician Patient Instructions: Heat Illness ED, Nausea and Vomiting, Adult ED, D ehydration, Adult ED, Diarrhea, Adult ED Add. Discharge Instructions: Avoid excessive heat as you would be more sensitive to dehydration and heat due to your gastric bypass. Use the dissolving Zofran nausea tablets to help keep your stomach settled. Keep sipping on fluids and electrolyte drinks. Use the dicyclomine or Bentyl to help with abdominal pain and cramping. Resume taking your normal medications to get back on schedule with those to help control your chronic conditions. Follow-up with work comp and primary care as needed for further concerns. You could return to work on your next scheduled day which you report is July 06. All discharge instructions reviewed with patient and/or family. Voiced understanding. Scripts Dicyclomine HCl (Dicyclomine HCl) 10 Mg Capsule 10 MG PO QID PRN for ABDOMINAL PAIN for 5 Days, #20 CAP 0 Refills Prov: FRANK GREER MD 06/23/23 Ondansetron (Ondansetron Odt) 4 Mg Tab.rapdis 4 MG PO Q6H PRN for NAUSEA/VOMITING for 3 Days, #12 TAB 0 Refills Prov: FRANK GREER MD 06/23/23 FRANK GREER MD Jun 23, 2023 11:25
[2023-06-23 11:42] LABS: WHITE BLOOD COUNT 9.8 10^3/uL (4.3-11.0)
[2023-06-23 11:43] LABS: BASOPHILS % (AUTO) 0 % (0-10); EOSINOPHILS % (AUTO) 0 % (0-10); HEMATOCRIT 43 % (35-52); HEMOGLOBIN 14.8 g/dL (11.5-16.0); LYMPHOCYTES % (AUTO) 20 % (12-44); MEAN CORPUSCULAR HEMOGLOBIN 30 pg (25-34); MEAN CORPUSCULAR HGB CONC 35 g/dL (32-36); MEAN CORPUSCULAR VOLUME 86 fL (80-99); MEAN PLATELET VOLUME 9.6 fL (9.0-12.2); MONOCYTES # (AUTO) 0.2 X 10^3 (0.0-1.0); MONOCYTES % (AUTO) 2 % (0-12); NEUTROPHILS # (AUTO) 7.6 X 10^3 (1.8-7.8); NEUTROPHILS % (AUTO) 77 % (42-75); PLATELET COUNT 345 10^3/uL (130-400)
[2023-06-23 11:47] LABS: CLARITY,URINE SL CLOUDY; COLOR,URINE YELLOW
[2023-06-23] MEDS ORDERED: fentaNYL INJECTION 100 MCG/2 ML VIAL IVP STA (11:47)
[2023-06-23 11:48] LABS: BACTERIA,URINE NEGATIVE /HPF; GLUCOSE, URINE (UA) NEGATIVE (NEGATIVE); KETONES,URINE 3+ (NEGATIVE); LEUKOCYTE ESTERASE ,URINE NEGATIVE (NEGATIVE); NITRITE,URINE NEGATIVE (NEGATIVE); PROTEIN,URINE TRACE (NEGATIVE); RBC,URINE RARE /HPF
[2023-06-23 11:49] LABS: BILIRUBIN,URINE 1+ (NEGATIVE)
[2023-06-23 11:52] LABS: CALCIUM 9.8 MG/DL (8.5-10.1); CREATININE SERUM 0.6 MG/DL (0.60-1.30); POTASSIUM 3.9 MMOL/L (3.6-5.0)
[2023-06-23 11:53] LABS: ALBUMIN 4.4 GM/DL (3.2-4.5); BILIRUBIN,TOTAL 0.6 MG/DL (0.1-1.0); MAGNESIUM 2.1 MG/DL (1.6-2.4); TOTAL PROTEIN 7.3 GM/DL (6.4-8.2)
[2023-06-23] MEDS ORDERED: HOLD METFORMIN - RECEIVED CONTRAST 20 ML VIAL IV SCH (12:00)
[2023-06-23] MEDS ORDERED: NS 100 ML (IVPB) BAG IV ONE (12:00)
[2023-06-23] MEDS ORDERED: IOHEXOL 350 MG/ML 100 ML (OMNIPAQUE 350) VIAL IV ONE (12:00)
--- NOTE | 2023-06-23 12:19 | Diagnostic Imaging Report ---
PROCEDURE: CT abdomen and pelvis with contrast. TECHNIQUE: Multiple contiguous axial images were obtained through the abdomen and pelvis after administration of intravenous contrast. Auto Exposure Controls were utilized during the CT exam to meet ALARA standards for radiation dose reduction. All CT scans use one or more of the following dose optimizing techniques: automated exposure control, MA and/or KvP adjustment based on patient size and exam type or iterative reconstruction. INDICATION: Nausea, vomiting and diarrhea. The lung bases are clear. The liver appears normal. Gallbladder is surgically absent. The portal vein is patent. Common duct is not dilated. The pancreas appears normal. The spleen is not enlarged. There are postsurgical changes near the gastroesophageal junction probably due to gastric bypass. Kidneys and adrenals appear normal. Small bowel is not dilated. There is no evidence of appendicitis. Colon is unremarkable. There are several small fibroids in the uterus. Adnexa are unremarkable. Urinary bladder is normal. There is no intraperitoneal free air or free fluid. IMPRESSION: No acute abnormality is seen in the abdomen or pelvis. Dictated by: Dictated on workstation # [id number] [email or web address]
[2023-06-23] MEDS ORDERED: DICY10CA12 PO (12:42)
[2023-06-23] MEDS ORDERED: ONDA4TAB11 PO (12:42)
== END 2023-06-23 12:56 | disposition home or self-care (01) ==
LOC: EDUNIT# 10:49 → ER FS 10:51
DX: T67.5XXA Heat exhaustion, unspecified, initial encounter (principal); E86.0 Dehydration; R19.7 Diarrhea, unspecified; R10.84 Generalized abdominal pain; Z98.84 Bariatric surgery status; Z91.040 Latex allergy status
CPT/HCPCS: 36415; 74177; 80053; 81000; 83605; 83735; 85025; 86141; Q9967

== ENCOUNTER 2023-06-24 15:01 | Emergency (ER) | payer OTHER ==
[~2023-06-24] VITALS: Ht 160 cm; Wt 77.1 kg
[~2023-06-24 15:01] MED LIST changes: +DICY10CA12 PO; +ONDA4TAB11 PO
[2023-06-24 15:05] VITALS: BP 123/68
[2023-06-24] MEDS ORDERED: fentaNYL INJECTION 100 MCG/2 ML VIAL IVP ONE (15:30)
[2023-06-24] MEDS ORDERED: NS IV 1000 ML 1,000 ML IV SCH (15:30)
[2023-06-24] MEDS ORDERED: ONDANSETRON INJECTION 4 MG/2 ML (SDV) IVP ONE (15:30)
[2023-06-24 15:36] LABS: BASOPHILS % (AUTO) 0 % (0-10); EOSINOPHILS % (AUTO) 0 % (0-10); HEMATOCRIT 40 % (35-52); HEMOGLOBIN 13.5 g/dL (11.5-16.0); LYMPHOCYTES # (AUTO) 2.2 10^3/uL (1.0-4.0); LYMPHOCYTES % (AUTO) 19 % (12-44); MEAN CORPUSCULAR HEMOGLOBIN 30 pg (25-34); MEAN CORPUSCULAR HGB CONC 34 g/dL (32-36); MEAN CORPUSCULAR VOLUME 86 fL (80-99); MEAN PLATELET VOLUME 9.5 fL (9.0-12.2); MONOCYTES # (AUTO) 0.4 10^3/uL (0.0-1.0); MONOCYTES % (AUTO) 4 % (0-12); NEUTROPHILS # (AUTO) 8.7 10^3/uL (1.8-7.8); NEUTROPHILS % (AUTO) 76 % (42-75); PLATELET COUNT 344 10^3/uL (130-400); WHITE BLOOD COUNT 11.4 10^3/uL (4.3-11.0)
[2023-06-24 15:37] LABS: CLARITY,URINE CLEAR; COLOR,URINE YELLOW; GLUCOSE, URINE (UA) NEGATIVE (NEGATIVE); KETONES,URINE 3+ (NEGATIVE); LEUKOCYTE ESTERASE ,URINE NEGATIVE (NEGATIVE); NITRITE,URINE NEGATIVE (NEGATIVE); PROTEIN,URINE NEGATIVE (NEGATIVE)
--- NOTE | 2023-06-24 15:37 | ED Abdominal Pain ---
General Chief Complaint: Abdominal/GI Problems Stated Complaint: ABD PAIN; DIARRHEA Nursing Triage Note: Patient reports she came to the ED yesterday for abdomina pain, nausea, and diarrhea. She states her diarrhea has improved since yesterday, but she is now having chills, nausea, and continued abdominal pain. Source of Information: Patient, Old Records, RN Notes Reviewed Exam Limitations: No Limitations History of Present Illness Date Seen by Provider: Jun 24, 2023 Time Seen by Provider: 15:10 Initial Comments 43-year-old female patient with history of gastric bypass in 2018 presented for the second time to emergency room with complaining of abdominal pain. Patient was seen in this emergency room yesterday with complaining of abdominal pain and nausea and diarrhea and possible heat exposure and had extensive unremarkable evaluation including CBC, CMP, lactic acid, lipase, UA, CT abdomen pelvis with IV contrast and treated with IV fluid and fentanyl and Zofran and discharged home with Bentyl and Zofran prescription. Patient stated she has had lower abdominal sharp pain and rated her pain 8/10 that started 30 minutes after her discharge from hospital. Patient complaining of nausea and chills but he stated her diarrhea is better. She stated she took her prescribed medication without improvement of her problem. She denies fever, urinary symptoms, sick contact. Patient complaining of anorexia and is stated she had only liquid and no food today. Patient has history of chronic back pain. Allergies and Home Medications Allergies Coded Allergies: latex (Unverified Allergy, Intermediate, HIVES, 06/21/14) Patient Home Medication List Home Medication List Reviewed: Yes Dicyclomine HCl (Dicyclomine HCl) 10 Mg Capsule, 10 MG PO QID PRN for ABDOMINAL PAIN Prescribed by: FRANK GREER on 06/23/23 1242 Duloxetine HCl (Duloxetine HCl) 60 Mg Capsule.dr, 60 MG PO BID, (Reported) Entered as Reported by: GABRIEL JERRY on 05/16/201924 Levothyroxine Sodium (Levothyroxine Sodium) 75 Mcg Tablet, 75 MCG PO DAILY, (Reported) Entered as Reported by: MICHAEL NEWSOME on 07/12/16 1134 Nortriptyline HCl (Nortriptyline HCl) 25 Mg Capsule, 25 MG PO HS, (Reported) Entered as Reported by: MICHAEL NEWSOME on 07/12/16 1134 Ondansetron (Ondansetron Odt) 4 Mg Tab.rapdis, 4 MG PO Q6H PRN for NAUSEA/VOMITING Prescribed by: FRANK GREER on 06/23/23 1242 Tizanidine HCl (Tizanidine HCl) 4 Mg Tablet, 4 MG PO HS, (Reported) Entered as Reported by: MICHAEL NEWSOME on 07/12/16 1134 Review of Systems Review of Systems Constitutional: see HPI EENTM: No Symptoms Reported Respiratory: No Symptoms Reported Cardiovascular: No Symptoms Reported Gastrointestinal: See HPI Genitourinary: No Symptoms Reported Musculoskeletal: see HPI Skin: no symptoms reported Psychiatric/Neurological: No Symptoms Reported Endocrine: No Symptoms Reported Hematologic/Lymphatic: No Symptoms Reported All Other Systems Reviewed Negative Unless Noted: Yes Past [id number] Hx Patient Social History Tobacco Use?: No Substance use?: No Alcohol Use?: No Pt feels they are or have been: No Immunizations Up To Date First/Initial COVID19 Vaccinat: not vaccinated Second COVID19 Vaccination Rohan: not vaccinated Third COVID19 Vaccination Date: not vaccinated Seasonal Allergies Seasonal Allergies: No Past Medical History Surgery/Hospitalization HX: Gastric Bypass 2018, Chronic back pain, Neuropathy Surgeries: Yes (KNEE SCOPE, UTERINE ABLATION, BACK SURGERY x 2 ) Respiratory: No Cardiac: No Neurological: No Reproductive Disorders: No Female Reproductive Disorders: Denies Sexually Transmitted Disease: No HIV/AIDS: No Genitourinary: No UTI-Chronic Gastrointestinal: Yes (INFLAMMED ESOPHAGUS/STOMACH) Gastroesophageal Reflux, Hiatal Hernia Musculoskeletal: Yes Degenerate Disk Disease, Arthritis, Back Injury, Chronic Back Pain Endocrine: Yes HEENT: No Loss of Vision: Denies Hearing Impairment: Denies Cancer: No Psychosocial: No (TAKES CYMBALTA FROM INFLAMATION) Integumentary: No Blood Disorders: No Adverse Reaction/Blood Tranf: No (N/A) Physical Exam Vital Signs Vital Signs - First Documented 06/24/23 15:05 Temp 36.8 Pulse 73 Resp 18 B/P (MAP) 123/68 (86) Pulse Ox 99 O2 Delivery Room Air Capillary Refill : Less Than 3 Seconds Height/Weight/BMI Height: 5'4.00" Weight: 226lbs. 1.0oz. [id number]; 30.00 BMI Method: General Appearance: mild distress (Anxious) HEENT: PERRL/EOMI, normal ENT inspection Neck: non-tender Respiratory: chest non-tender, lungs clear, normal breath sounds Cardiovascular: regular rate, rhythm, no edema, no gallop Gastrointestinal: normal bowel sounds, non tender, soft, guarding (Generalized) Extremities: normal range of motion, non-tender Back: normal inspection, no CVA tenderness Neurologic/Psychiatric: alert, oriented x 3 Skin: normal color, warm/dry Progress/Results/Core Measures Results/Orders Lab Results Laboratory Tests Test 06/24/23 15:32 06/24/23 15:35 Range/Units White Blood Count 11.4 H 4.3-11.0 10^3/uL Red Blood Count 4.57 3.80-5.11 10^6/uL Hemoglobin 13.5 11.5-16.0 g/dL Hematocrit 40 35-52 % Mean Corpuscular Volume 86 80-99 fL Mean Corpuscular Hemoglobin 30 25-34 pg Mean Corpuscular Hemoglobin Concent 34 32-36 g/dL Red Cell Distribution Width 11.8 10.0-14.5 % Platelet Count 344 130-400 10^3/uL Mean Platelet Volume 9.5 9.0-12.2 fL Immature Granulocyte % (Auto) 0 % Neutrophils (%) (Auto) 76 H 42-75 % Lymphocytes (%) (Auto) 19 12-44 % Monocytes (%) (Auto) 4 0-12 % Eosinophils (%) (Auto) 0 0-10 % Basophils (%) (Auto) 0 0-10 % Neutrophils # (Auto) 8.7 H 1.8-7.8 10^3/uL Lymphocytes # (Auto) 2.2 1.0-4.0 10^3/uL Monocytes # (Auto) 0.4 0.0-1.0 10^3/uL Eosinophils # (Auto) 0.0 0.0-0.3 10^3/uL Basophils # (Auto) 0.0 0.0-0.1 10^3/uL Immature Granulocyte # (Auto) 0.1 0.0-0.1 10^3/uL Sodium Level 139 135-145 MMOL/L Potassium Level 3.8 3.6-5.0 MMOL/L Chloride Level 104 98-107 MMOL/L Carbon Dioxide Level 21 21-32 MMOL/L Anion Gap 14 5-14 MMOL/L Blood Urea Nitrogen 7 7-18 MG/DL Creatinine 0.62 0.60-1.30 MG/DL Estimat Glomerular Filtration Rate 112 BUN/Creatinine Ratio 11 Glucose Level 109 H 70-105 MG/DL Calcium Level 9.5 8.5-10.1 MG/DL Corrected Calcium 9.4 8.5-10.1 MG/DL Total Bilirubin 0.3 0.1-1.0 MG/DL Aspartate Amino Transf (AST/SGOT) 15 5-34 U/L Alanine Aminotransferase (ALT/SGPT) 18 0-55 U/L Alkaline Phosphatase 67 40-136 U/L Total Protein 6.7 6.4-8.2 GM/DL Albumin 4.1 3.2-4.5 GM/DL Lipase 16 8-78 U/L Urine Color YELLOW Urine Clarity CLEAR Urine pH 6.0 5-9 Urine Specific Leonidas >=1.030 1.016-1.022 Urine Protein NEGATIVE NEGATIVE Urine Glucose (UA) NEGATIVE NEGATIVE Urine Ketones 3+ H NEGATIVE Urine Nitrite NEGATIVE NEGATIVE Urine Bilirubin 1+ H NEGATIVE Urine Urobilinogen 1.0 < = 1.0 MG/DL Urine Leukocyte Esterase NEGATIVE NEGATIVE Urine RBC (Auto) 2+ H NEGATIVE Urine RBC 2-5 H /HPF Urine WBC NONE /HPF Urine Squamous Epithelial Cells 2-5 /HPF Urine Crystals NONE /LPF Urine Bacteria FEW H /HPF Urine Casts NONE /LPF Urine Mucus NEGATIVE /LPF Urine Culture Indicated NO My Orders Orders - PHILLIP HUYNH MD Comprehensive Metabolic Panel (06/24/23 15:23) Lipase (06/24/23 15:23) Ua Culture If Indicated (06/24/23 15:23) Ed Iv/Invasive Line Start (06/24/23 15:23) Cbc With Automated Diff (06/24/23 15:23) Ns Iv 1000 Ml (Ns Iv 1000 Ml) (06/24/23 15:30) Ondansetron Injection (Ondansetron Inj (06/24/23 15:30) Fentanyl Injection (Fentanyl Injection (06/24/23 15:30) Vital Signs/I&O 06/24/23 15:05 Temp 36.8 Pulse 73 Resp 18 B/P (MAP) 123/68 (86) Pulse Ox 99 O2 Delivery Room Air Blood Pressure Mean: 86 Progress Progress Note : Time: 16:19 Progress Note 43-year-old female patient with second ER visit for abdominal pain and nausea and diarrhea. Patient had unremarkable labs and CT abdomen pelvis yesterday and discharged home with prescription of Bentyl and Zofran. Patient currently have Ultram at home. Patient had unremarkable physical exam and vital signs. CBC, CMP, UA and lipase was ordered and reviewed by me and did not show acute finding except for microscopic hematuria that was seen yesterday also. Patient advised to follow-up with primary care physician later on for evaluation of microscopic hematuria if is persisted. Patient advised to take liquid diet and no solid food today and continue home medication. Patient tolerated oral intake in ER and feels comfortable to go home. Departure Impression Primary Impression: Viral gastroenteritis Additional Impression: Microscopic hematuria Disposition: HOME, SELF-CARE Condition: Improved Departure-Patient Inst. Decision time for Depature: 16:16 Referrals: SIDNEY MACDONALD MD (PCP/Family) Primary Care Physician Patient Instructions: Blood in the urine (hematuria) in adults, Diarrhea, Adult ED, Viral gastroenteritis in adults Add. Discharge Instructions: Drink plenty of liquid, no solid food today Continue home pain and nausea medication Follow-up with your primary care physician for evaluation of microscopic blood in your urine Return to ER as needed All discharge instructions reviewed with patient and/or family. Voiced understanding. PHILLIP HUYNH MD Jun 24, 2023 15:37
[2023-06-24 15:41] LABS: BACTERIA,URINE FEW /HPF; BILIRUBIN,URINE 1+ (NEGATIVE)
[2023-06-24 15:52] LABS: BILIRUBIN,TOTAL 0.3 MG/DL (0.1-1.0); CALCIUM 9.5 MG/DL (8.5-10.1); POTASSIUM 3.8 MMOL/L (3.6-5.0); TOTAL PROTEIN 6.7 GM/DL (6.4-8.2)
[2023-06-24 15:53] LABS: ALBUMIN 4.1 GM/DL (3.2-4.5)
[2023-06-24 15:54] LABS: CREATININE SERUM 0.62 MG/DL (0.60-1.30)
== END 2023-06-24 16:22 | disposition home or self-care (01) ==
LOC: EDUNIT# 15:01 → ER FS 15:02
DX: A08.4 Viral intestinal infection, unspecified (principal); R31.29 Other microscopic hematuria; Z91.040 Latex allergy status; Z28.310 Unvaccinated for COVID-19; Z98.84 Bariatric surgery status
CPT/HCPCS: 36415; 80053; 81000; 83690; 85025